=== PATIENT | female | born 1950 | race Caucasian/White ===

== ENCOUNTER 2023-08-02 08:32 | Day surgery (SDC) | payer MEDICARE ==
[~2023-08-02 08:32] MED LIST: BETADINE 5% OPHTHALMIC 30 ML OP ONE; NON-FORMULARY ITEM OP ONE; cefUROXime sodium 0.005 GM in Sodium Chloride Flush 30 ML*** 0.5 ML IJ ONE
[2023-08-02] MEDS ORDERED: Lactated Ringers 1,000 ML IV ONE (09:17)
[2023-08-02 09:36] VITALS: RESP 18
[2023-08-02] MEDS: TETRACAINE 0.5% STERI-UNIT SOL OP ONE ×2 (09:40→10:20)
[2023-08-02] MEDS: Lactated Ringers 1,000 ML IV SCH (09:40)
[2023-08-02] MEDS: Ak-Dilate OPHTHALMIC*** 1.065 ML, TROPICAMIDE 1.065 ML, GATIFLOXACIN 0.5% OPHTH DROPS 0... OP ONE (09:41)
[2023-08-02] MEDS ORDERED: Zofran 4 MG/2 ML VIAL IV PRN (10:30)
[2023-08-02] MEDS ORDERED: Epinephrine Preservative Free 1 MG/ML IJ ONE (10:30)
[2023-08-02] MEDS ORDERED: DIPRIVAN 200 MG/20 ML IV ONE ×2 (12:21→12:34)
[2023-08-02] MEDS: ACETAZOLAMIDE 250 MG TABLET PO ONE (12:48)
[2023-08-02 12:51] VITALS: O2SAT 97
[2023-08-02 13:11] VITALS: BP 126/86; PULSE 68; TEMP 97.8
== END 2023-08-02 13:05 | disposition home or self-care (01) ==
LOC: SDC 08:32
PROVIDERS: ATTEND Ophthalmology
DX: H25.812 Combined forms of age-related cataract, left eye (principal); I10 Essential (primary) hypertension
CPT/HCPCS: 93005; 99100; J0171; J2704; A9270-GY